=== PATIENT | male | born 1990 | race African-American/Black ===

== ENCOUNTER 2020-07-14 05:31 | Day surgery (SDC) | payer OTHER ==
[~2020-07-14] VITALS: Ht 182.9 cm; Wt 90.7 kg
[2020-07-14 06:23] LABS: SARS-CoV-2 ANTIGEN NEGATIVE- SARS-COV-2 (NEGATIVE)
[2020-07-14 06:24] VITALS: BP 151/96; Ht 182.9 cm; Wt 90.7 kg
[2020-07-14 07:08] LABS: ANION GAP 8.4 mmol/L (8-16); CARBON DIOXIDE 30.6 mmol/L (21.0-32.0); CREATININE - SERUM 1.3 mg/dL (0.6-1.3)
[2020-07-14 07:14] LABS: HEMATOCRIT 40.9 % (42.0-54.0); LYMPHOCYTE ABS# 3.43 10x3/uL (1.32-3.57); MCHC 34.2 g/dL (31.0-37.0); MCV 84.9 fL (80.0-100.0); MEAN PLATELET VOLUME 10.5 fL (7.4-10.4); NEUTROPHIL ABS# 1.74 10x3/uL (1.78-5.38); PLATELET COUNT 269 10x3/uL (130-400); RBC 4.82 10x6/uL (4.20-6.10); RDW 12.1 % (11.5-14.5); WBC 5.9 10x3/uL (4.8-10.8)
[2020-07-14 10:30] LABS: LYMPHOCYTES 57 % (15-50); MONOCYTES 7 % (2-11); NEUTROPHILS 36 % (40-80)
[2020-07-14 10:31] LABS: ANISOCYTOSIS OCC; PLATELET ESTIMATE NORMAL
--- NOTE | 2020-07-14 10:59 | NUR ---
OPA I AIRWAY ON ADMIT
--- NOTE | 2020-07-14 11:28 | NUR ---
1117 RETURNED TO 2506, GUARDS X2. SLEEPING, OPENED EYES WITH TOUCH, WATER AND OJ LEFT AT BEDSIDE, CRITERIA TO MEET PRIOR TO DISCHARGE GIVEN.
--- NOTE | 2020-07-14 11:33 | NUR ---
1130 DR. MIKALA GUEVARA.
--- NOTE | 2020-07-14 14:27 | OP ---
PATIENT NAME: LANIE GAN MEDICAL RECORD: [id number] :89 LOCATION:[facility] ADMISSION DATE: SURGEON: MARY BACH MD DATE OF OPERATION: 07/14/2020 PREOPERATIVE DIAGNOSIS: Symptomatic left inguinal hernia. POSTOPERATIVE DIAGNOSIS: Symptomatic incarcerated pantaloon left inguinal hernia (with indirect and direct components). PROCEDURES: Open left inguinal hernia repair with bilayered preperitoneal polypropylene mesh. SURGEON: Mary Bach MD TRUCK STRIKER: None. BLOOD LOSS: Minimal. ANESTHESIA: General. COMPLICATIONS: None. The risks, possible complications, and alternatives of the procedure were explained to the patient. He elects to proceed. OPERATIVE COURSE: The patient was conveyed to the operating room electively on 07/14/2020. General anesthesia was induced by the anesthesia staff. The abdomen and genitals were sterilely prepped and draped. A transverse incision was accomplished in the left groin. Sharp dissection was carried down through skin and subcutaneous tissue as well as Angela fascia. External oblique aponeurosis was then opened along the direction of its fibers. I bluntly dissected down through the internal oblique and transversus abdominis muscles. This was a muscle technique and a muscle splitting technique. A preperitoneal pocket was fashioned bluntly. There was a small non-incarcerated indirect hernia. There was a larger incarcerated direct hernia. The hernia sac was from the incarcerated fat. Two ovals of polypropylene mesh were then cut. They were sutured on top of each other with a running #1 Surgidac. The mesh was placed in the preperitoneal space. Once I was satisfied with placement of the mesh, I allowed the internal oblique and transverse abdominis muscles to come together and I sutured them together with interrupted horizontal mattress 0 Surgidac incorporating a portion of the underlying mesh. The external oblique aponeurosis was closed with running #1 Vicryls. Angela's fascia was approximated with interrupted 3-0 Vicryls. The subdermis was approximated with interrupted 3-0 Vicryl. The skin was approximated with a running intracuticular 4-0 Vicryl. Benzoin and Steri-Strips were applied. The patient was then extubated and conveyed to post-anesthesia care unit where he was in stable condition. He will be [facility] back to the [facility]. He is going to be dismissed back on tramadol as well as Colace. There is no need for the patient to see me in the office in followup unless he develops a complication related to this operative procedure. OPERATIVE REPORT [id number] LANIE GAN JENNY:[id number] Voice Confirmation ID: [id number] DOCUMENT ID: [id number] cc: Dr. Telly Chung [phone] MARY BACH MD at 1427 CC: Dr. Shiva Chung [phone] DICTATION DATE: 07/14/20 1045 [employer] SUPERVISOR: 07/14/20 1116 [facility] 07/14/20 [id number] [place] [address]
== END 2020-07-14 13:10 | disposition home or self-care (01) ==
LOC: D.OPS 05:31
PROVIDERS: ATTEND Surgery
DX: K40.30 Unilateral inguinal hernia, with obstruction, without gangrene, not specified as recurrent (principal)